=== PATIENT | female | born 1950 | race Caucasian/White ===

== ENCOUNTER 2017-03-30 14:21 | Inpatient (IN) | END 2017-04-01 17:00 | disposition home or self-care (01) | DRG 292 | DX: J18.9 Pneumonia, unspecified organism (principal); I11.0 Hypertensive heart disease with heart failure; I25.810 Atherosclerosis of coronary artery bypass graft(s) without angina pectoris; I50.30 Unspecified diastolic (congestive) heart failure; N76.0 Acute vaginitis; F17.210 Nicotine dependence, cigarettes, uncomplicated; E78.00 Pure hypercholesterolemia, unspecified; I25.2 Old myocardial infarction; I73.9 Peripheral vascular disease, unspecified; J44.9 Chronic obstructive pulmonary disease, unspecified; K21.9 Gastro-esophageal reflux disease without esophagitis; R32 Unspecified urinary incontinence; I48.91 Unspecified atrial fibrillation; E78.5 Hyperlipidemia, unspecified; M19.90 Unspecified osteoarthritis, unspecified site; M81.0 Age-related osteoporosis without current pathological fracture; G89.29 Other chronic pain; R51 Headache; E11.40 Type 2 diabetes mellitus with diabetic neuropathy, unspecified; Z79.4 Long term (current) use of insulin; E66.9 Obesity, unspecified; H40.9 Unspecified glaucoma; Z88.8 Allergy status to other drugs, medicaments and biological substances; Z79.01 Long term (current) use of anticoagulants; Z79.82 Long term (current) use of aspirin; Z79.899 Other long term (current) drug therapy | CPT/HCPCS: 36415; 71045; 80053; 82272; 82550; 82553; 83605; 83735; 83880; 84443; 84484; 84550; 85025; 85379; 85610; 85730; 87338; 93005; 96374; 96375; J7050 ==

== ENCOUNTER 2022-03-03 11:25 | Emergency (ER) | payer MEDICARE, OTHER ==
[2022-03-03 11:58] VITALS: PULSE 80
[2022-03-03 12:10] LABS: ANION GAP 8.2 meq/L (7-15)
[2022-03-03 16:59] VITALS: BP 113/50
== END 2022-03-03 14:40 | disposition home or self-care (01) ==
LOC: LL.ED 11:25
DX: R07.89 Other chest pain (principal); I48.91 Unspecified atrial fibrillation; I25.810 Atherosclerosis of coronary artery bypass graft(s) without angina pectoris; I11.0 Hypertensive heart disease with heart failure; I50.9 Heart failure, unspecified; E78.00 Pure hypercholesterolemia, unspecified; I25.2 Old myocardial infarction; J44.9 Chronic obstructive pulmonary disease, unspecified; M19.90 Unspecified osteoarthritis, unspecified site; E13.42 Other specified diabetes mellitus with diabetic polyneuropathy; E66.9 Obesity, unspecified; Z68.43 Body mass index [BMI] 50.0-59.9, adult; Z88.1 Allergy status to other antibiotic agents; Z88.8 Allergy status to other drugs, medicaments and biological substances; Z79.899 Other long term (current) drug therapy; Z79.82 Long term (current) use of aspirin; Z79.01 Long term (current) use of anticoagulants; Z79.84 Long term (current) use of oral hypoglycemic drugs
CPT/HCPCS: 36415; 71045; 80053; 84484; 85025; 85379; 85610; 93005; 99285

== ENCOUNTER 2023-09-06 09:09 | Inpatient (IN) | payer MEDICARE, OTHER ==
[2023-09-06] MEDS ORDERED: Albuterol 6.7 GM Inhaler INH PRN (14:35)
[2023-09-06] MEDS ORDERED: CICLOPIROX TOP PRN (14:35)
[2023-09-06] MEDS ORDERED: CALCIPOTRIENE TP PRN (14:35)
[2023-09-06] MEDS ORDERED: CLOBETASOL 0.05% TOP PRN (14:35)
[2023-09-06] MEDS ORDERED: Nitroglycerin 0.4 MG Tab.SL SL PRN (14:35)
[2023-09-06] MEDS: Magnesium Oxide 400 MG Tab PO SCH (17:18)
[2023-09-06] MEDS: Potassium Chloride 20 MEQ Tab.ER PO SCH (17:19)
[2023-09-06] MEDS: Midodrine 5 MG Tab PO SCH (17:19)
[2023-09-06] MEDS: Gabapentin 100 MG Cap PO SCH (17:19)
[2023-09-06] MEDS: Doxycycline Monohydrate 100 MG Cap PO SCH (17:20)
[2023-09-06] MEDS: Insulin Lispro 100 Units/ML 3 ML Vial SUBCUT SCH (17:27)
[2023-09-06] MEDS: Insulin Glarg,Human.Rec.Analog 100 Unit/ML 10 ML Vial SUBCUT SCH (17:28)
[2023-09-06] MEDS: Furosemide 20 MG Tab PO SCH (17:31)
[2023-09-06] MEDS: atorvaSTATin 20 MG Tab PO SCH (19:15)
[2023-09-06] MEDS: Apixaban 5 MG Tab PO ONE (23:06)
[2023-09-06] MEDS: metFORMIN 500 MG Tab.ER PO ONE (23:06)
[2023-09-07] MEDS: Levothyroxine 25 MCG Tab PO SCH (07:33)
[2023-09-07] MEDS: Cholecalciferol (Vitamin D3) 25 MCG Tab PO SCH (07:40)
[2023-09-07] MEDS: Escitalopram 20 MG Tab PO SCH (07:41)
[2023-09-07] MEDS: Multivitamin Tab PO SCH (07:41)
[2023-09-07] MEDS: Losartan 50 MG Tab PO SCH (07:47)
[2023-09-07] MEDS: Metoprolol Succinate 50 MG Tab.ER PO SCH (07:48)
[2023-09-07] MEDS: Digoxin 125 MCG Tab PO SCH (07:48)
[2023-09-07] MEDS: Umeclidinium Brm/Vilanterol Tr 62.5-25 MCG 30 Puff Inhaler IH SCH (07:48)
[2023-09-07] MEDS: Insulin Glarg,Human.Rec.Analog 100 Unit/ML 10 ML Vial SUBCUT SCH (07:50)
[2023-09-07] MEDS: Non-Formulary Medication 1 Each (Alendronate [Fosamax] 35 MG Tablet) PO SCH (08:23)
[2023-09-07] MEDS: Non-Formulary Medication 1 Each (Semaglutide [Ozempic] 1 MG/0.75 ML Pen.Injctr) SQ SCH (08:23)
[2023-09-07 08:37] LABS: CALCIUM 8.9 mg/dL (8.5-10.1); CARBON DIOXIDE,CO2 33.5 mmol/L (21.0-32.0); CREATININE 0.99 mg/dL (0.51-1.17); EST CRCL DRUG DOSING (CG) 41.87 mL/min; POTASSIUM,K 4.3 mmol/L (3.5-5.1)
[2023-09-07 08:38] LABS: ANION GAP 9.8 meq/L (7-15)
[2023-09-07] MEDS: Apixaban 5 MG Tab PO SCH (09:40)
[2023-09-07] MEDS: metFORMIN 500 MG Tab.ER PO SCH (09:40)
[2023-09-08] MEDS: Tiotropium BR/Olodaterol HCL 4 GM Inhalation Spray 2.5mcg/1 dose; 10 doses INH SCH (11:46)
[2023-09-08] MEDS: Triamcinolone Acetonide 0.5% Crm 15 GM Tube TOP SCH (21:30)
[2023-09-09] MEDS: CLOBETASOL 0.05% TOP SCH (21:16)
[2023-09-11] MEDS: SEMAGLUTIDE SQ SCH (07:35)
[2023-09-11] MEDS: Alendronate 70 MG Tab PO SCH (08:14)
[2023-09-11 10:50] LABS: ANION GAP 7.6 meq/L (7-15); CALCIUM 9.6 mg/dL (8.5-10.1); CARBON DIOXIDE,CO2 29.4 mmol/L (21.0-32.0); CREATININE 1.29 mg/dL (0.51-1.17); DIGOXIN 0.79 ng/mL (0.90-2.00); EST CRCL DRUG DOSING (CG) 32.13 mL/min; MAGNESIUM 1.3 mg/dL (1.8-2.4)
[2023-09-11 11:07] VITALS: PULSE 55
[2023-09-11 13:56] VITALS: BP 116/49
== END 2023-09-11 14:30 | disposition home or self-care (01) | DRG 948 ==
LOC: LL.MS 13:25
PROVIDERS: ADMIT Physician Assistant; ATTEND Physician Assistant
DX: R53.81 Other malaise (principal); I42.9 Cardiomyopathy, unspecified; Z68.43 Body mass index [BMI] 50.0-59.9, adult; I25.10 Atherosclerotic heart disease of native coronary artery without angina pectoris; I48.91 Unspecified atrial fibrillation; I11.0 Hypertensive heart disease with heart failure; I50.9 Heart failure, unspecified; E78.00 Pure hypercholesterolemia, unspecified; I25.2 Old myocardial infarction; J44.9 Chronic obstructive pulmonary disease, unspecified; K21.9 Gastro-esophageal reflux disease without esophagitis; M19.90 Unspecified osteoarthritis, unspecified site; M81.0 Age-related osteoporosis without current pathological fracture; E11.42 Type 2 diabetes mellitus with diabetic polyneuropathy; F32.A Depression, unspecified; F41.9 Anxiety disorder, unspecified; E66.9 Obesity, unspecified; Z95.1 Presence of aortocoronary bypass graft; Z88.1 Allergy status to other antibiotic agents; Z88.8 Allergy status to other drugs, medicaments and biological substances; Z79.01 Long term (current) use of anticoagulants; Z79.84 Long term (current) use of oral hypoglycemic drugs; Z90.49 Acquired absence of other specified parts of digestive tract; Z91.040 Latex allergy status; Z79.899 Other long term (current) drug therapy; Z79.890 Hormone replacement therapy; Z87.442 Personal history of urinary calculi; Z98.890 Other specified postprocedural states
CPT/HCPCS: 36415; 80048; 80162; 82947; 83735; 94640; 97162-GP; 97165-GO; 97530-GO; 97530-GP; A9270-GY; J1815-GY

== ENCOUNTER 2023-09-11 13:35 | Observation (INO) | payer MEDICARE, OTHER ==
[2023-09-11] MEDS ORDERED: 50% Dextrose in Water 50 ML Syringe IVPUSH PRN (13:59)
[2023-09-11] MEDS ORDERED: CALCIPOTRIENE 120 GM TP PRN (13:59)
[2023-09-11] MEDS ORDERED: Glucagon,Human Recombinant 1 MG Vial IM PRN (13:59)
[2023-09-11] MEDS ORDERED: Albuterol 6.7 GM Inhaler INH PRN (13:59)
[2023-09-11] MEDS ORDERED: Nitroglycerin 0.4 MG Tab.SL SL PRN (13:59)
[2023-09-11] MEDS ORDERED: CICLOPIROX 0.77% TOP PRN (13:59)
[2023-09-11] MEDS: metFORMIN 500 MG Tab.ER PO SCH (17:03)
[2023-09-11] MEDS: Midodrine 5 MG Tab PO SCH (17:03)
[2023-09-11] MEDS: Magnesium Oxide 400 MG Tab PO SCH (17:04)
[2023-09-11] MEDS: Apixaban 5 MG Tab PO SCH (17:04)
[2023-09-11] MEDS: Gabapentin 100 MG Cap PO SCH (17:04)
[2023-09-11] MEDS: Potassium Chloride 20 MEQ Tab.ER PO SCH (17:05)
[2023-09-11] MEDS: Doxycycline Monohydrate 100 MG Cap PO SCH (17:05)
[2023-09-11] MEDS: Insulin Glarg,Human.Rec.Analog 100 Unit/ML 10 ML Vial SUBCUT SCH (17:06)
[2023-09-11] MEDS: Insulin Lispro 100 Units/ML 3 ML Vial SUBCUT SCH ×2 (17:14→20:33)
[2023-09-11] MEDS: EMOLLIENT TOP SCH (17:27)
[2023-09-11] MEDS: CLOBETASOL TOP SCH (17:27)
[2023-09-11] MEDS: atorvaSTATin 20 MG Tab PO SCH (19:41)
[2023-09-12] MEDS: Multivitamin Tab PO SCH (07:34)
[2023-09-12] MEDS: Levothyroxine 25 MCG Tab PO SCH (07:37)
[2023-09-12] MEDS: Furosemide 20 MG Tab PO SCH (07:38)
[2023-09-12] MEDS: Cholecalciferol (Vitamin D3) 25 MCG Tab PO SCH (07:39)
[2023-09-12] MEDS: Escitalopram 20 MG Tab PO SCH (07:39)
[2023-09-12] MEDS: Tiotropium BR/Olodaterol HCL 4 GM Inhalation Spray 2.5mcg/1 dose; 10 doses INH SCH (07:41)
[2023-09-12] MEDS: Insulin Glarg,Human.Rec.Analog 100 Unit/ML 10 ML Vial SUBCUT SCH (07:51)
[2023-09-12 09:07] VITALS: BP 137/54
[2023-09-12 09:45] VITALS: PULSE 85
[2023-09-12] MEDS: Digoxin 125 MCG Tab PO SCH (09:47)
[2023-09-12] MEDS: Losartan 50 MG Tab PO SCH (11:08)
[2023-09-12] MEDS: Metoprolol Succinate 50 MG Tab.ER PO SCH (11:09)
[2023-09-18] MEDS ORDERED: Alendronate 70 MG Tab PO SCH (07:00)
[2023-09-18] MEDS ORDERED: Semaglutide [Ozempic] 1 MG SQ SCH (08:00)
== END 2023-09-12 10:57 | disposition home or self-care (01) ==
LOC: LL.MS 14:29
PROVIDERS: ADMIT Physician Assistant; ATTEND Physician Assistant
DX: E83.42 Hypomagnesemia (principal); I48.91 Unspecified atrial fibrillation; R19.7 Diarrhea, unspecified; I11.0 Hypertensive heart disease with heart failure; I50.9 Heart failure, unspecified; J44.9 Chronic obstructive pulmonary disease, unspecified; E11.51 Type 2 diabetes mellitus with diabetic peripheral angiopathy without gangrene; E11.42 Type 2 diabetes mellitus with diabetic polyneuropathy; R53.81 Other malaise; I27.20 Pulmonary hypertension, unspecified; E03.9 Hypothyroidism, unspecified; E78.5 Hyperlipidemia, unspecified; L40.9 Psoriasis, unspecified; F33.0 Major depressive disorder, recurrent, mild; Z79.84 Long term (current) use of oral hypoglycemic drugs; Z79.890 Hormone replacement therapy; Z79.01 Long term (current) use of anticoagulants; Z79.4 Long term (current) use of insulin; Z79.899 Other long term (current) drug therapy
CPT/HCPCS: 36415; 82947; 83735; 96365; 96366; 99223; 99238; A9270-GY; G0378; J3475

== ENCOUNTER 2024-01-02 14:38 | Emergency (ER) | payer MEDICARE, OTHER ==
[~2024-01-02 14:38] MED LIST: Sodium Chloride 0.9% 10 ML Syringe FLUSH PRN
[2024-01-02] MEDS: Sodium Chloride 0.9% 1,000 ML IV ONE (14:56)
[2024-01-02 14:57] LABS: BASOPHILS ABSOLUTE AUTO 0.07 K/uL (0.00-0.20); BASOPHILS PERCENT AUTO 0.4 % (0.0-2.0); EOSINOPHILS ABSOLUTE AUTO 0.19 K/uL (0.00-0.50); HEMATOCRIT 34.7 % (34.0-46.0); LYMPHOCYTES ABSOLUTE AUTO 1.83 K/uL (0.50-3.50); LYMPHOCYTES PERCENT AUTO 9.7 % (10.0-50.0); MEAN CORPUSCULAR HEMOGLOBIN 23.6 pg (28.2-33.3); MEAN CORPUSCULAR HGB CONC 28.8 g/dL (31.7-36.0); MEAN CORPUSCULAR VOLUME 81.8 fL (84.0-98.0); MONOCYTES ABSOLUTE AUTO 1.42 K/uL (0.00-1.00); MONOCYTES PERCENT AUTO 7.5 % (2.0-14.0); NEUTROPHILS ABSOLUTE AUTO 15.39 K/uL (1.40-7.00); NEUTROPHILS PERCENT AUTO 81.4 % (45.0-80.0); PLATELET COUNT,PLT 447 K/uL (150-350); RED BLOOD CELL COUNT 4.24 M/uL (3.77-5.09); RED CELL DISTRIBUTION WIDTH 16.8 % (11.2-14.1); WHITE BLOOD CELL COUNT,WBC 18.9 K/uL (4.0-10.2)
[2024-01-02] MEDS: Sodium Chloride 0.9% 500 ML IV ONE (14:57)
[2024-01-02 15:16] LABS: ALANINE AMINOTRANSFERASE,ALT 21 U/L (12-78); ALBUMIN 3.1 g/dL (3.4-5.0); ALKALINE PHOSPHATASE 138 IU/L (46-116); ANION GAP 9.1 meq/L (7-15); ASPARTATE AMNIOTRANSFERASE,AST 20 U/L (15-37); BILIRUBIN TOTAL 0.6 mg/dL (0.2-1.0); BLOOD UREA NITROGEN,BUN 18 mg/dL (7-18); CALCIUM 9.3 mg/dL (8.5-10.1); CARBON DIOXIDE,CO2 30.9 mmol/L (21.0-32.0); CHLORIDE,CL 100 mmol/L (98-107); CREATININE 1.13 mg/dL (0.51-1.17); GLUCOSE RANDOM 199 mg/dL (70-99); POTASSIUM,K 4.3 mmol/L (3.5-5.1); PROTEIN TOTAL,TP 7.2 g/dL (6.4-8.2); SODIUM,NA 140 mmol/L (136-145)
[2024-01-02 15:17] LABS: ESTIMATED GFR 51 mL/min (>=60)
[2024-01-02 15:21] LABS: LACTIC ACID 3.6 mmol/L (0.4-2.0)
[2024-01-02 15:28] LABS: MAGNESIUM 1.5 mg/dL (1.8-2.4); TSH ULTRASENSITIVE 4.43 mIU/mL (0.358-3.740)
[2024-01-02 15:46] VITALS: PULSE 137
[2024-01-02] MEDS: Sodium Chloride 0.9% 500 ML IV SCH (15:48)
[2024-01-02 15:52] VITALS: BP 96/70
[2024-01-02 16:04] LABS: DIGOXIN 1.15 ng/mL (0.90-2.00)
[2024-01-02] MEDS: Magnesium Sulfate/Water Premix 2 GM in Premix Bag 1 BAG IV ONE (16:26)
[2024-01-02 16:57] LABS: APPEARANCE,URINE SLIGHTLY CLOUDY; BILIRUBIN,URINE NEGATIVE (NEGATIVE); COLOR,URINE YELLOW; GLUCOSE,URINE NEGATIVE (NEGATIVE); KETONES,URINE NEGATIVE (NEGATIVE); LEUKOCYTE ESTERASE,URINE SMALL (NEGATIVE); NITRITE,URINE NEGATIVE (NEGATIVE); OCCULT BLOOD,URINE NEGATIVE (NEGATIVE); PH,URINE 5.5 (5.0-9.0); PROTEIN,URINE NEGATIVE (NEGATIVE); UROBILINOGEN,URINE 0.2 E.U./dL (0.2-1.0)
[2024-01-02] MEDS: Diltiazem 25 MG/5 ML SDV IVPUSH ONE ×3 (17:02→18:15)
[2024-01-02 17:06] LABS: BACTERIA,URINE MODERATE /HPF (NONE TO FEW); EPITHELIAL CELLS,URINE MODERATE /LPF; RBC,URINE 0-5 /HPF
[2024-01-02] MEDS: Diltiazem 125 MG in Sodium Chloride 0.9% 100 ML IV SCH (17:13)
== END 2024-01-02 19:44 ==
LOC: LL.ED 14:38
DX: I48.20 Chronic atrial fibrillation, unspecified (principal); E83.42 Hypomagnesemia; I11.0 Hypertensive heart disease with heart failure; I50.9 Heart failure, unspecified; E78.00 Pure hypercholesterolemia, unspecified; I25.10 Atherosclerotic heart disease of native coronary artery without angina pectoris; I25.2 Old myocardial infarction; J44.9 Chronic obstructive pulmonary disease, unspecified; E11.40 Type 2 diabetes mellitus with diabetic neuropathy, unspecified; Z90.49 Acquired absence of other specified parts of digestive tract; Z79.899 Other long term (current) drug therapy; Z79.84 Long term (current) use of oral hypoglycemic drugs; Z79.4 Long term (current) use of insulin; Z88.8 Allergy status to other drugs, medicaments and biological substances; Z88.1 Allergy status to other antibiotic agents; Z88.6 Allergy status to analgesic agent; Z91.040 Latex allergy status; Z91.048 Other nonmedicinal substance allergy status
CPT/HCPCS: 36415; 71045; 80053; 80162; 81001; 82947; 83605; 83735; 83880; 84443; 84484; 85025; 87086; 87088; 87186; 93005; 93010; 96361; 96365; 96366; 96367; 96376; 99284; 99285-25; J3475; J3490; J7030; J7040

== ENCOUNTER 2024-03-08 11:44 | Emergency (ER) | payer MEDICARE, OTHER ==
[2024-03-08] MEDS ORDERED: Glucagon,Human Recombinant 1 MG Vial IM PRN ×2 (11:51→12:22)
[2024-03-08] MEDS ORDERED: 50% Dextrose in Water 50 ML Syringe IVPUSH PRN ×2 (11:51→12:22)
[2024-03-08 11:59] LABS: BASOPHILS ABSOLUTE AUTO 0.06 K/uL (0.00-0.20); BASOPHILS PERCENT AUTO 0.4 % (0.0-2.0); EOSINOPHILS ABSOLUTE AUTO 0.19 K/uL (0.00-0.50); EOSINOPHILS PERCENT AUTO 1.3 % (0.0-5.0); HEMATOCRIT 32.2 % (34.0-46.0); HEMOGLOBIN 9.3 g/dL (11.7-15.5); IMMATURE GRAN ABSOLUTE AUTO 0.23 10^3/uL (0.00-0.04); IMMATURE GRAN PERCENT AUTO 1.6 % (0.0-0.4); LYMPHOCYTES ABSOLUTE AUTO 1.55 K/uL (0.50-3.50); LYMPHOCYTES PERCENT AUTO 10.6 % (10.0-50.0); MEAN CORPUSCULAR HEMOGLOBIN 22.8 pg (28.2-33.3); MEAN CORPUSCULAR HGB CONC 28.9 g/dL (31.7-36.0); MEAN CORPUSCULAR VOLUME 78.9 fL (84.0-98.0); MONOCYTES ABSOLUTE AUTO 1.35 K/uL (0.00-1.00); MONOCYTES PERCENT AUTO 9.2 % (2.0-14.0); NEUTROPHILS ABSOLUTE AUTO 11.27 K/uL (1.40-7.00); NEUTROPHILS PERCENT AUTO 76.9 % (45.0-80.0); PLATELET COUNT,PLT 409 K/uL (150-350); RED BLOOD CELL COUNT 4.08 M/uL (3.77-5.09); RED CELL DISTRIBUTION WIDTH 16.8 % (11.2-14.1); WHITE BLOOD CELL COUNT,WBC 14.7 K/uL (4.0-10.2)
[2024-03-08 12:12] LABS: LACTIC ACID 5.6 mmol/L (0.4-2.0)
[2024-03-08 12:19] LABS: BILIRUBIN TOTAL 0.4 mg/dL (0.2-1.0); CALCIUM 10.1 mg/dL (8.5-10.1); CARBON DIOXIDE,CO2 28.5 mmol/L (21.0-32.0); CREATININE 1.47 mg/dL (0.51-1.17); EST CRCL DRUG DOSING (CG) 27.77 mL/min; MAGNESIUM 1.4 mg/dL (1.8-2.4); POTASSIUM,K 4.6 mmol/L (3.5-5.1); PROTEIN TOTAL,TP 6.8 g/dL (6.4-8.2)
[2024-03-08 12:20] LABS: ANION GAP 11.1 meq/L (7-15)
[2024-03-08] MEDS: Insulin Regular, Human 100 Units/ML 3 ML Vial SUBCUT ONE ×2 (12:34→12:37)
[2024-03-08] MEDS: Pantoprazole 40 MG Vial IVPUSH ONE (12:34)
[2024-03-08] MEDS: Sodium Chloride 0.9% 10 ML Syringe FLUSH PRN (12:40)
[2024-03-08] MEDS: Sodium Chloride 0.9% 1,000 ML IV ONE ×2 (12:51→14:17)
[2024-03-08] MEDS: Magnesium Sulfate/Water Premix 2 GM in Premix Bag 1 BAG IV ONE (12:57)
[2024-03-08 15:52] VITALS: BP 118/57; PULSE 75
[2024-03-08 16:10] LABS: APPEARANCE,URINE SLIGHTLY CLOUDY; BILIRUBIN,URINE NEGATIVE (NEGATIVE); COLOR,URINE YELLOW; GLUCOSE,URINE 500 mg/dL (NEGATIVE); KETONES,URINE NEGATIVE (NEGATIVE); LEUKOCYTE ESTERASE,URINE TRACE (NEGATIVE); NITRITE,URINE POSITIVE (NEGATIVE); OCCULT BLOOD,URINE NEGATIVE (NEGATIVE); PROTEIN,URINE NEGATIVE (NEGATIVE); UROBILINOGEN,URINE 0.2 E.U./dL (0.2-1.0)
[2024-03-08 16:38] LABS: BACTERIA,URINE MODERATE /HPF (NONE TO FEW); EPITHELIAL CELLS,URINE FEW /LPF; RBC,URINE 0-5 /HPF
== END 2024-03-08 16:35 ==
LOC: LL.ED 11:44
DX: E10.65 Type 1 diabetes mellitus with hyperglycemia (principal); K92.1 Melena; I48.91 Unspecified atrial fibrillation; I25.10 Atherosclerotic heart disease of native coronary artery without angina pectoris; I11.0 Hypertensive heart disease with heart failure; I50.9 Heart failure, unspecified; I25.2 Old myocardial infarction; E78.00 Pure hypercholesterolemia, unspecified; J44.9 Chronic obstructive pulmonary disease, unspecified; K21.9 Gastro-esophageal reflux disease without esophagitis; M19.90 Unspecified osteoarthritis, unspecified site; E10.42 Type 1 diabetes mellitus with diabetic polyneuropathy; E66.9 Obesity, unspecified; Z90.49 Acquired absence of other specified parts of digestive tract; Z88.8 Allergy status to other drugs, medicaments and biological substances; Z91.040 Latex allergy status; Z91.048 Other nonmedicinal substance allergy status; Z79.01 Long term (current) use of anticoagulants; Z79.82 Long term (current) use of aspirin; Z79.84 Long term (current) use of oral hypoglycemic drugs; Z79.4 Long term (current) use of insulin; Z79.51 Long term (current) use of inhaled steroids; Z79.899 Other long term (current) drug therapy; Z68.41 Body mass index [BMI] 40.0-44.9, adult
CPT/HCPCS: 36415; 80053; 80162; 81001; 82009; 82272; 82947; 83605; 83735; 83880; 85025; 87086; 87088; 87186; 87428; 96361; 96365; 96366; 96375; 99285; J1815; J2470; J3475; J7030; 99284